=== PATIENT | female | born 1930 | race African-American/Black ===

== ENCOUNTER → 2017-02-18 | Outpatient (CLI) | payer MEDICARE, OTHER ==
[2014-08-07 21:52] VITALS: BP 141/65
[~2017-02-18] MED LIST: BRIM5DRO2 OP; LATA2.5D3 EACHEYE; LOSA25TA4 PO; METO25TA4 PO
--- NOTE | 2017-02-18 12:23 | RAD ---
DATE: 02/18/2017 EXAM: DIGITAL SCREEN BILAT W/CAD HISTORY: Routine screening COMPARISON: 02/18/2016 and 01/25/2015. This study was interpreted with the benefit of Computerized Aided Detection (CAD). FINDINGS: The parenchymal pattern is stable. There are benign-appearing nodular densities in the left breast which appear to be fairly stable. Benign calcification on the left are also seen. Post biopsy changes right breast appears stable. No new mass or malignant appearing microcalcifications are identified. The axillae are unremarkable. Breast Density: SCATTERED The breast parenchyma shows scattered fibroglandular densities. Breast parenchyma level B. IMPRESSION: Stable bilateral mammograms. No mammographic features suspicious for malignancy are identified. BI-RADS CATEGORY: 2 BENIGN FINDING(S) RECOMMENDED FOLLOW-UP: 12M 12 MONTH FOLLOW-UP PQRS compliance statement: Patient information was entered into a reminder system with a target due date 02/18/2018 for the next mammogram. Mammography is a sensitive method for finding small breast cancers, but it does not detect them all and is not a substitute for careful clinical examination. A negative mammogram does not negate a clinically suspicious finding and should not result in delay in biopsying a clinically suspicious abnormality. "Our facility is accredited by the [employer]ammography [employer]."
== END | disposition home or self-care (01) ==
LOC: MAMMO 08:09
PROVIDERS: ATTEND Family Medicine
DX: Z12.31 Encounter for screening mammogram for malignant neoplasm of breast (principal)
CPT/HCPCS: G0202; 77067

== ENCOUNTER 2017-09-04 17:25 | Inpatient (IN) | payer MEDICARE, OTHER ==
[~2017-09-04] VITALS: Ht 165.1 cm; Wt 75.0 kg
[2017-09-04 18:01] LABS: BASO % 0 % (0-3); EOS % 1 % (0-3); HEMATOCRIT 38.9 % (36.0-47.0); HEMOGLOBIN 12.8 g/dL (12.0-15.5); LYMPH # 1.6 x10^3/uL (1.0-4.8); LYMPH % 15 % (24-48); MEAN CORPUSCULAR HEMOGLOBIN 26 pg (25-35); MEAN CORPUSCULAR HGB CONC 33 g/dL (31-37); MEAN CORPUSCULAR VOLUME 79 fL (79-100); MONO % 14 % (0-9); NEUT % 70 % (31-73); PLATELET COUNT 287 x10^3/uL (140-400); RED BLOOD COUNT 4.94 x10^6/uL (3.50-5.40); RED CELL DISTRIBUTION WIDTH 14.4 % (11.5-14.5); WHITE BLOOD COUNT 11.1 x10^3/uL (4.0-11.0)
[2017-09-04 18:13] LABS: CALCIUM 10.1 mg/dL (8.5-10.1); CREATININE 0.9 mg/dL (0.6-1.0); GFR 71.3; POTASSIUM 4.1 mmol/L (3.5-5.1)
[2017-09-04 18:20] LABS: ALBUMIN 3.8 g/dL (3.4-5.0); ALBUMIN/GLOBULIN RATIO 0.8 (1.0-1.7); MAGNESIUM 1.8 mg/dL (1.8-2.4); TOTAL BILIRUBIN 0.4 mg/dL (0.2-1.0); TOTAL PROTEIN 8.7 g/dL (6.4-8.2)
[2017-09-04 18:23] LABS: OBC FLU VALID
[2017-09-04 18:37] LABS: BILIRUBIN,URINE NEGATIVE (NEG); GLUCOSE,URINE NEGATIVE (NEG); NITRITE,URINE NEGATIVE (NEG); PROTEIN,URINE 100 mg/dL (NEG-TRACE); UROBILINOGEN,URINE 0.2 mg/dL (0.2 mg/dL)
[2017-09-04] MEDS ORDERED: ONDANSETRON PF 4 MG/2 ML VIAL. IV PRN ×2 (18:45→19:30)
--- NOTE | 2017-09-04 18:49 | PHYS DOC ---
Past Medical History Past Medical History: Glaucoma, Hypertension, Pneumonia, Renal Disease Past Surgical History: Hysterectomy Additional Past Surgical Histo: benign fibroids in both breasts Alcohol Use: None Drug Use: None Adult General Chief Complaint Chief Complaint: COUGH HPI HPI Patient is a 87 year old female presenting to the emergency department for evaluation of cough congestion losing her voice dizziness weakness. Symptoms of cough started approximately 3 days ago and she says that she has been feeling progressively weaker to the point where she cannot take care of herself at home anymore. She says that she lives by herself and she is concerned for her safety she is getting weak and dizzy and cannot get around as she usually does. Cough is productive of a yellowish mucus and she says that she feels somewhat short of breath with it. She feels chills but no measured fevers. She is nontoxic-appearing in no obvious distress with normal vital signs. Review of Systems Review of Systems Constitutional: Denies fever. + chills [] Eyes: Denies change in visual acuity, redness, or eye pain [] HENT: + nasal congestion, sore throat [] Respiratory: + cough, shortness of breath [] Cardiovascular: No additional information not addressed in HPI [] GI: Denies abdominal pain, nausea, vomiting, bloody stools or diarrhea [] : Denies dysuria or hematuria [] Musculoskeletal: Denies back pain or joint pain [] Integument: Denies rash or skin lesions [] Neurologic: Denies headache, focal weakness or sensory changes [] All other systems were reviewed and found to be within normal limits, except as documented in this note. Current Medications Current Medications Current Medications Medications (Trade) Dose Ordered Sig/Chris Start Time Stop Time Status Last Admin Dose Admin Azithromycin (Zithromax) 500 mg 1X ONCE 09/04/17 19:00 09/04/17 19:01 Ceftriaxone Sodium 1 gm/ Dextrose 50 ml @ 100 mls/hr Q24H 09/04/17 18:45 UNV Ceftriaxone Sodium (Rocephin) 1 gm Q24H 09/05/17 18:00 Ondansetron HCl (Zofran) 4 mg PRN Q8HRS PRN 09/04/17 18:45 09/05/17 18:44 Allergies Allergies Allergies Coded Allergies Type Severity Reaction Last Updated Verified codeine Allergy Intermediate UPSET STOMACHE 08/07/14 No Physical Exam Physical Exam Constitutional: Well developed, well nourished, no acute distress, non-toxic appearance. [] HENT: Normocephalic, atraumatic, bilateral external ears normal, oropharynx moist, no oral exudates, nose normal. [] Eyes: PERRLA, EOMI, conjunctiva normal, no discharge. [] Neck: Normal range of motion, no tenderness, supple, no stridor. [] Cardiovascular:Heart rate regular rhythm, no murmur [] Lungs & Thorax: Bilateral breath sounds with expiratory wheezing noted Abdomen: Bowel sounds normal, soft, no tenderness, no masses, no pulsatile masses. [] Skin: Warm, dry, no erythema, no rash. [] Back: No tenderness, no CVA tenderness. [] Extremities: No tenderness, no cyanosis, no clubbing, ROM intact, no edema. [] Neurologic: Alert and oriented X 3, normal motor function, normal sensory function, no focal deficits noted. [] Current Patient Data Vital Signs Vital Signs Date Time Temp Pulse Resp B/P (MAP) Pulse Ox O2 Delivery O2 Flow Rate FiO2 09/04/17 17:48 99.2 93 20 204/72 (116) 96 Room Air 99.2 Lab Values Laboratory Tests Test 09/04/17 17:45 09/04/17 18:00 White Blood Count 11.1 x10^3/uL (4.0-11.0) H Red Blood Count 4.94 x10^6/uL (3.50-5.40) Hemoglobin 12.8 g/dL (12.0-15.5) Hematocrit 38.9 % (36.0-47.0) Mean Corpuscular Volume 79 fL (79-100) Mean Corpuscular Hemoglobin 26 pg (25-35) Mean Corpuscular Hemoglobin Concent 33 g/dL (31-37) Red Cell Distribution Width 14.4 % (11.5-14.5) Platelet Count 287 x10^3/uL (140-400) Neutrophils (%) (Auto) 70 % (31-73) Lymphocytes (%) (Auto) 15 % (24-48) L Monocytes (%) (Auto) 14 % (0-9) H Eosinophils (%) (Auto) 1 % (0-3) Basophils (%) (Auto) 0 % (0-3) Neutrophils # (Auto) 7.8 x10^3uL (1.8-7.7) H Lymphocytes # (Auto) 1.6 x10^3/uL (1.0-4.8) Monocytes # (Auto) 1.5 x10^3/uL (0.0-1.1) H Eosinophils # (Auto) 0.1 x10^3/uL (0.0-0.7) Basophils # (Auto) 0.0 x10^3/uL (0.0-0.2) Sodium Level 134 mmol/L (136-145) L Potassium Level 4.1 mmol/L (3.5-5.1) Chloride Level 99 mmol/L (98-107) Carbon Dioxide Level 27 mmol/L (21-32) Anion Gap 8 (6-14) Blood Urea Nitrogen 13 mg/dL (7-20) Creatinine 0.9 mg/dL (0.6-1.0) Estimated GFR (Cockcroft-Gault) 71.3 BUN/Creatinine Ratio 14 (6-20) Glucose Level 142 mg/dL (70-99) H Lactic Acid Level 1.5 mmol/L (0.4-2.0) Calcium Level 10.1 mg/dL (8.5-10.1) Magnesium Level 1.8 mg/dL (1.8-2.4) Total Bilirubin 0.4 mg/dL (0.2-1.0) Aspartate Amino Transferase (AST) 13 U/L (15-37) L Alanine Aminotransferase (ALT) 22 U/L (14-59) Alkaline Phosphatase 89 U/L (46-116) Troponin I Quantitative < 0.017 ng/mL (0.000-0.055) HU-Kdh-T-Type Natriuretic Peptide 951 pg/mL (0-449) H Total Protein 8.7 g/dL (6.4-8.2) H Albumin 3.8 g/dL (3.4-5.0) Albumin/Globulin Ratio 0.8 (1.0-1.7) L Influenza Type A Antigen Negative (NEGATIVE) Influenza Type B Antigen Negative (NEGATIVE) Laboratory Tests 09/04/17 17:45 Laboratory Tests 09/04/17 17:45 EKG EKG Sinus rhythm at 89 beats per minutes with normal axis no obvious ST elevation or depression and normal T waves Radiology/Procedures Radiology/Procedures Normal mediastinum and normal heart size no obvious free air pneumothorax but patient does have a left lower lobe infiltrate Course & Med Decision Making Course & Med Decision Making Patient with signs and symptoms concerning for pneumonia and given she is living by herself at home and not functioning well she will be admitted for Rocephin Zithromax and further evaluation and treatment. Patient admitted in stable condition. Dragon Disclaimer Dragon Disclaimer This electronic medical record was generated, in whole or in part, using a voice recognition dictation system. Departure Departure Impression: Primary Impression: CAP (community acquired pneumonia) Additional Impressions: Leukocytosis Elevated brain natriuretic peptide (BNP) level Disposition: ADMITTED INPATIENT Admitting Physician: Porsha Moscoso Condition: STABLE Referrals: FREDY CORREIA (PCP) Problem Qualifiers Primary Impression: CAP (community acquired pneumonia) Laterality: left Lung location: lower lobe of lung Qualified Codes: J18.1 - Lobar pneumonia, unspecified organism AB BOWENS DO Sep 04, 2017 18:49
[2017-09-04 18:50] LABS: BACTERIA,URINE 0 /HPF (0-FEW); SQUAMOUS EPITHELIAL CELL,UR MOD /LPF
[2017-09-04] MEDS ORDERED: AZITHROMYCIN 250 MG TABLET. PO ONE (19:00)
[2017-09-04] MEDS ORDERED: guaiFENesin DM 200MG/20MG 10 ML SYRUP PO PRN (19:30)
[2017-09-04] MEDS ORDERED: LABETALOL 20 MG/4 ML DISP.SYRIN. IVP PRN (19:30)
[2017-09-04] MEDS ORDERED: ACETAMINOPHEN 325 MG TABLET. PO PRN (19:30)
[2017-09-04] MEDS: METOPROLOL TART IMMED RELEASE 25 MG TABLET. PO SCH (20:09)
[2017-09-04] MEDS: LATANOPROST 0.005% OPHTH SOLUTION 2.5ML BOTTLE. OU SCH (20:09)
[2017-09-04] MEDS ORDERED: CLON0.1T PO (20:14)
--- NOTE | 2017-09-04 20:14 | PDOC1 ---
History and Physical Date of Admission Date of Admission DATE: 09/04/17 TIME: 20:09 Identification/Chief Complaint Chief Complaint cough, soa, Problems: Source Source: Caregiver, Chart review, Patient History of Present Illness History of Present Illness Pleasant 87 y,o AA female who lives at home but has good IADLs, tried to call his PCP office today holiday weekend and did not get an answer so decided to come to ER and her friend dropped her off, Few days hx dry cough, SOA, maybe mild temp at home, no recent sick contacts or travel, HAd PNA 1 yr ago,NOn smoker. No diarrhea, no emesis, Labs CBC WBC 11, CXR infiltrate, admitted and being treated for CAP, She was dizzy and too weak to go home and was adamant to be admitted, She is coughing quite frequently during my visit tonight and now has a low grade temp now. Past Medical History Cardiovascular: HTN, Hyperlipidemia Past Surgical History Past Surgical History: No pertinent history Family History Family History: Hypertension Social History Smoke: No ALCOHOL: none Drugs: None Current Problem List Problem List Problems Medical Problems: (1) CAP (community acquired pneumonia) Status: Acute (2) Elevated brain natriuretic peptide (BNP) level Status: Acute (3) Leukocytosis Status: Acute Problems: Current Medications Current Medications Current Medications Ceftriaxone Sodium 1 gm/ Dextrose 50 ml @ 100 mls/hr Q24H IV ; Start 09/04/17 at 18:45; Status UNV Azithromycin (Zithromax) 500 mg 1X ONCE PO Last administered on 09/04/17 19: 27; Start 09/04/17 at 19:00; Stop 09/04/17 at 19:01; Status DC Ondansetron HCl (Zofran) 4 mg PRN Q8HRS PRN IV NAUSEA/VOMITING; Start at 18:45; Stop 09/04/17 at 19:29; Status DC Ceftriaxone Sodium 50 ml @ 100 mls/hr 1X ONCE IV Last administered on 19:27; Start 09/04/17 at 19:00; Stop 09/04/17 at 19:29; Status DC Ceftriaxone Sodium (Rocephin) 1 gm Q24H IVP ; Start 09/05/17 at 18:00 Ondansetron HCl (Zofran) 4 mg PRN Q6HRS PRN IV NAUSEA/VOMITING; Start at 19:30 Acetaminophen (Tylenol) 650 mg PRN Q6HRS PRN PO pain; Start 09/04/17 at 19:30 Guaifenesin (Robitussin Dm) 10 ml PRN Q6HRS PRN PO COUGH; Start 09/04/17 at 19 :30 Albuterol/ Ipratropium (Duoneb) 3 ml RTQID NEB ; Start 09/04/17 at 20:00 Labetalol HCl (Normodyne) 10 mg PRN Q2HR PRN IVP HYPERTENSION, SEE COMMENTS; Start 09/04/17 at 19:30 Azithromycin (Zithromax) 250 mg DAILY PO ; Start 09/05/17 at 09:00 Latanoprost (Xalatan) 1 drop QHS OU ; Start 09/04/17 at 21:00 Losartan Potassium (Cozaar) 25 mg DAILY PO ; Start 09/05/17 at 09:00 Metoprolol Tartrate (Lopressor) 25 mg BID PO ; Start 09/04/17 at 21:00 Timolol Maleate (Timoptic 0.25% Ophth) 1 drop DAILY OU ; Start 09/05/17 at 09: 00 Active Scripts Active Reported Latanoprost 2.5 Ml Drops 1 Drop EACHEYE QHS Metoprolol Tartrate 25 Mg Tablet 1 Tab PO BID Losartan Potassium 25 Mg Tablet 25 Mg PO DAILY Combigan Eye Drops (Brimonidine Tartrate/Timolol) 5 Ml Drops 5 Ml OP Allergies Allergies: Coded Allergies: codeine (Unverified Allergy, Intermediate, UPSET STOMACHE, 08/07/14) ROS Review of System as per HPI, all else 14 pt reviewed, neg Physical Exam General: Alert, Oriented X3 HEENT: Atraumatic, PERRLA Lungs: Normal air movement, Other (wheezing) Cardiovascular: S1, S2 Breasts: Normal, Rt breast nml w/o mass, Lt breast nml w/o mass, Nipples normal Abdomen: Normal bowel sounds, Soft, No tenderness, No hepatosplenomegaly, No masses Rectal Exam: not examined PELVIC: Nml ext genitalia Extremities: No clubbing, No cyanosis, No edema, Normal pulses, No tenderness/ swelling Skin: No rashes, No breakdown, No significant lesion Neuro: Normal gait, Normal speech, Strength at 5/5 X4 ext, Normal tone, Sensation intact, Cranial nerves 3-12 NL, Reflexes 2+ Psych/Mental Status: Mental status NL, Mood NL Vitals Vitals Vital Signs Date Time Temp Pulse Resp B/P (MAP) Pulse Ox O2 Delivery O2 Flow Rate FiO2 09/04/17 17:48 99.2 93 20 204/72 (116) 96 Room Air 99.2 Labs Labs Laboratory Tests Test 09/04/17 17:45 09/04/17 18:00 09/04/17 18:15 White Blood Count 11.1 x10^3/uL (4.0-11.0) Red Blood Count 4.94 x10^6/uL (3.50-5.40) Hemoglobin 12.8 g/dL (12.0-15.5) Hematocrit 38.9 % (36.0-47.0) Mean Corpuscular Volume 79 fL (79-100) Mean Corpuscular Hemoglobin 26 pg (25-35) Mean Corpuscular Hemoglobin Concent 33 g/dL (31-37) Red Cell Distribution Width 14.4 % (11.5-14.5) Platelet Count 287 x10^3/uL (140-400) Neutrophils (%) (Auto) 70 % (31-73) Lymphocytes (%) (Auto) 15 % (24-48) Monocytes (%) (Auto) 14 % (0-9) Eosinophils (%) (Auto) 1 % (0-3) Basophils (%) (Auto) 0 % (0-3) Neutrophils # (Auto) 7.8 x10^3uL (1.8-7.7) Lymphocytes # (Auto) 1.6 x10^3/uL (1.0-4.8) Monocytes # (Auto) 1.5 x10^3/uL (0.0-1.1) Eosinophils # (Auto) 0.1 x10^3/uL (0.0-0.7) Basophils # (Auto) 0.0 x10^3/uL (0.0-0.2) Sodium Level 134 mmol/L (136-145) Potassium Level 4.1 mmol/L (3.5-5.1) Chloride Level 99 mmol/L (98-107) Carbon Dioxide Level 27 mmol/L (21-32) Anion Gap 8 (6-14) Blood Urea Nitrogen 13 mg/dL (7-20) Creatinine 0.9 mg/dL (0.6-1.0) Estimated GFR (Cockcroft-Gault) 71.3 BUN/Creatinine Ratio 14 (6-20) Glucose Level 142 mg/dL (70-99) Lactic Acid Level 1.5 mmol/L (0.4-2.0) Calcium Level 10.1 mg/dL (8.5-10.1) Magnesium Level 1.8 mg/dL (1.8-2.4) Total Bilirubin 0.4 mg/dL (0.2-1.0) Aspartate Amino Transf (AST/SGOT) 13 U/L (15-37) Alanine Aminotransferase (ALT/SGPT) 22 U/L (14-59) Alkaline Phosphatase 89 U/L (46-116) Troponin I Quantitative < 0.017 ng/mL (0.000-0.055) MO-Ivw-X-Type Natriuretic Peptide 951 pg/mL (0-449) Total Protein 8.7 g/dL (6.4-8.2) Albumin 3.8 g/dL (3.4-5.0) Albumin/Globulin Ratio 0.8 (1.0-1.7) Influenza Type A Antigen Negative (NEGATIVE) Influenza Type B Antigen Negative (NEGATIVE) Urine Collection Type Unknown Urine Color Yellow Urine Clarity Clear Urine pH 7.0 Urine Specific [place] 1.010 Urine Protein 100 mg/dL (NEG-TRACE) Urine Glucose (UA) Negative mg/dL (NEG) Urine Ketones (Stick) Negative mg/dL (NEG) Urine Blood Negative (NEG) Urine Nitrite Negative (NEG) Urine Bilirubin Negative (NEG) Urine Urobilinogen Dipstick 0.2 mg/dL (0.2 mg/dL) Urine Leukocyte Esterase Trace (NEG) Urine RBC 1-2 /HPF (0-2) Urine WBC 1-4 /HPF (0-4) Urine Squamous Epithelial Cells Mod /LPF Urine Bacteria 0 /HPF (0-FEW) Laboratory Tests Test 09/04/17 17:45 09/04/17 18:00 09/04/17 18:15 White Blood Count 11.1 x10^3/uL (4.0-11.0) Red Blood Count 4.94 x10^6/uL (3.50-5.40) Hemoglobin 12.8 g/dL (12.0-15.5) Hematocrit 38.9 % (36.0-47.0) Mean Corpuscular Volume 79 fL (79-100) Mean Corpuscular Hemoglobin 26 pg (25-35) Mean Corpuscular Hemoglobin Concent 33 g/dL (31-37) Red Cell Distribution Width 14.4 % (11.5-14.5) Platelet Count 287 x10^3/uL (140-400) Neutrophils (%) (Auto) 70 % (31-73) Lymphocytes (%) (Auto) 15 % (24-48) Monocytes (%) (Auto) 14 % (0-9) Eosinophils (%) (Auto) 1 % (0-3) Basophils (%) (Auto) 0 % (0-3) Neutrophils # (Auto) 7.8 x10^3uL (1.8-7.7) Lymphocytes # (Auto) 1.6 x10^3/uL (1.0-4.8) Monocytes # (Auto) 1.5 x10^3/uL (0.0-1.1) Eosinophils # (Auto) 0.1 x10^3/uL (0.0-0.7) Basophils # (Auto) 0.0 x10^3/uL (0.0-0.2) Sodium Level 134 mmol/L (136-145) Potassium Level 4.1 mmol/L (3.5-5.1) Chloride Level 99 mmol/L (98-107) Carbon Dioxide Level 27 mmol/L (21-32) Anion Gap 8 (6-14) Blood Urea Nitrogen 13 mg/dL (7-20) Creatinine 0.9 mg/dL (0.6-1.0) Estimated GFR (Cockcroft-Gault) 71.3 BUN/Creatinine Ratio 14 (6-20) Glucose Level 142 mg/dL (70-99) Lactic Acid Level 1.5 mmol/L (0.4-2.0) Calcium Level 10.1 mg/dL (8.5-10.1) Magnesium Level 1.8 mg/dL (1.8-2.4) Total Bilirubin 0.4 mg/dL (0.2-1.0) Aspartate Amino Transf (AST/SGOT) 13 U/L (15-37) Alanine Aminotransferase (ALT/SGPT) 22 U/L (14-59) Alkaline Phosphatase 89 U/L (46-116) Troponin I Quantitative < 0.017 ng/mL (0.000-0.055) VY-Tek-X-Type Natriuretic Peptide 951 pg/mL (0-449) Total Protein 8.7 g/dL (6.4-8.2) Albumin 3.8 g/dL (3.4-5.0) Albumin/Globulin Ratio 0.8 (1.0-1.7) Influenza Type A Antigen Negative (NEGATIVE) Influenza Type B Antigen Negative (NEGATIVE) Urine Collection Type Unknown Urine Color Yellow Urine Clarity Clear Urine pH 7.0 Urine Specific [place] 1.010 Urine Protein 100 mg/dL (NEG-TRACE) Urine Glucose (UA) Negative mg/dL (NEG) Urine Ketones (Stick) Negative mg/dL (NEG) Urine Blood Negative (NEG) Urine Nitrite Negative (NEG) Urine Bilirubin Negative (NEG) Urine Urobilinogen Dipstick 0.2 mg/dL (0.2 mg/dL) Urine Leukocyte Esterase Trace (NEG) Urine RBC 1-2 /HPF (0-2) Urine WBC 1-4 /HPF (0-4) Urine Squamous Epithelial Cells Mod /LPF Urine Bacteria 0 /HPF (0-FEW) VTE Prophylaxis Ordered VTE Prophylaxis Devices: Yes VTE Pharmacological Prophylaxi: Yes Assessment/Plan Assessment/Plan 1. CAP 2. SIRS no sepsis, infectious, nonorgan dysfcn 3. HTN, controlled 4. MIld PCM PLan; Admit 2 MN IVF x 1 L PO pred since wheezy Would cont CAP coverage started at ER Cough meds Bhavya PT.OT Further recs pending above Resume home meds Seen in room with aide and rn at bedside RICHARD OLIVEIRA MD Sep 04, 2017 20:14
[2017-09-04 20:25] VITALS: BP 197/62
[2017-09-04] MEDS ORDERED: predniSONE 10 MG TABLET PO ONE (20:30)
[2017-09-04] MEDS: guaiFENesin DM 200MG/20MG 10 ML SYRUP PO SCH (20:41)
[2017-09-04] MEDS ORDERED: TRIA1CAP3 PO (20:47)
[2017-09-04] MEDS: IPRATRPIUM/ALBUTEROL 0.5/2.5MG 3 ML NEBU. NEB SCH (20:57)
[2017-09-04] MEDS ORDERED: IV NORMAL SALINE 1000ML BAG 1,000 ML IV ONE (21:00)
[2017-09-04] MEDS: BENZONATATE 100 MG CAPSULE. PO SCH (21:11)
[2017-09-04 22:04] VITALS: BP 158/59
[2017-09-04 23:10] VITALS: BP 146/68
[2017-09-05 03:00] VITALS: BP 151/56
[2017-09-05] MEDS ORDERED: BRIM5DRO2 OP (03:54)
[2017-09-05] MEDS ORDERED: ASPI-612 PO (03:54)
[2017-09-05 06:02] LABS: BASO % 0 % (0-3); EOS % 0 % (0-3); HEMATOCRIT 38.5 % (36.0-47.0); HEMOGLOBIN 12.2 g/dL (12.0-15.5); LYMPH # 1.1 x10^3/uL (1.0-4.8); LYMPH % 11 % (24-48); MEAN CORPUSCULAR HEMOGLOBIN 25 pg (25-35); MEAN CORPUSCULAR HGB CONC 32 g/dL (31-37); MEAN CORPUSCULAR VOLUME 80 fL (79-100); MONO % 4 % (0-9); NEUT % 85 % (31-73); PLATELET COUNT 237 x10^3/uL (140-400); RED BLOOD COUNT 4.84 x10^6/uL (3.50-5.40); RED CELL DISTRIBUTION WIDTH 14.4 % (11.5-14.5); WHITE BLOOD COUNT 9.9 x10^3/uL (4.0-11.0)
[2017-09-05 06:19] LABS: CALCIUM 9.6 mg/dL (8.5-10.1); CREATININE 0.9 mg/dL (0.6-1.0); GFR 71.3; POTASSIUM 3.9 mmol/L (3.5-5.1)
[2017-09-05] MEDS: IPRATRPIUM/ALBUTEROL 0.5/2.5MG 3 ML NEBU. NEB SCH ×4 (07:34→19:42)
--- NOTE | 2017-09-05 07:55 | RAD ---
Two view chest History:COUGH . PA and lateral views of the chest are submitted. Comparison: 01/28/2016 Findings: There is mild opacity near the left heart border, somewhat more apparent than previous exam. There is no dependent pleural fluid or pneumothorax. Heart size is stable. Impression: 1. Mild opacity near the left heart border is more apparent than 2016 exam which may be due to mild atelectasis or infiltrate.
[2017-09-05] MEDS ORDERED: TIMOLOL 0.25% OPHTH SOLUTION 5ML BOTTLE. OU SCH (09:00)
[2017-09-05] MEDS: AZITHROMYCIN 250 MG TABLET. PO SCH (09:25)
[2017-09-05] MEDS: BENZONATATE 100 MG CAPSULE. PO SCH ×3 (09:25→21:19)
[2017-09-05] MEDS: predniSONE 20 MG TABLET PO SCH (09:25)
[2017-09-05] MEDS: LOSARTAN POTASSIUM 25 MG TABLET. PO SCH (09:27)
[2017-09-05] MEDS: guaiFENesin DM 200MG/20MG 10 ML SYRUP PO SCH ×4 (09:27→21:19)
[2017-09-05] MEDS: METOPROLOL TART IMMED RELEASE 25 MG TABLET. PO SCH ×2 (09:27→21:20)
[2017-09-05] MEDS ORDERED: hydrALAZINE 20 MG/ML VIAL. IVP PRN (09:30)
[2017-09-05 11:11] VITALS: BP 130/43
--- NOTE | 2017-09-05 12:51 | EKG ---
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
--- NOTE | 2017-09-05 13:28 | PDOC ---
PROGRESS NOTES Chief Complaint Chief Complaint 1. CAP, mild left 2. SIRS no sepsis, infectious, nonorgan dysfcn 3. HTN, controlled 4. MIld PCM History of Present Illness History of Present Illness feels better Think she wont be ready to dc by tmr Requests her own eye drops also says she is on ASA 81 PLAn: CPM Better Her cxr result I have given her PT.OT Supportive [facility] next 24-48 hrs Vitals Vitals Vital Signs Date Time Temp Pulse Resp B/P (MAP) Pulse Ox O2 Delivery O2 Flow Rate FiO2 09/05/17 11:55 96 Room Air 09/05/17 11:11 98.2 72 20 130/43 (72) 98.2 Physical Exam General: Alert, Oriented X3 Heart: Regular rate Lungs: Other (minmal BS poor effort) Abdomen: Normal bowel sounds, Soft, No tenderness, No hepatosplenomegaly, No masses Extremities: No clubbing, No cyanosis, No edema, Normal pulses, No tenderness/ swelling Skin: No rashes, No breakdown, No significant lesion Labs LABS Laboratory Tests Test 09/04/17 17:45 09/04/17 18:00 09/04/17 18:15 09/05/17 05:25 White Blood Count 11.1 x10^3/uL (4.0-11.0) 9.9 x10^3/uL (4.0-11.0) Red Blood Count 4.94 x10^6/uL (3.50-5.40) 4.84 x10^6/uL (3.50-5.40) Hemoglobin 12.8 g/dL (12.0-15.5) 12.2 g/dL (12.0-15.5) Hematocrit 38.9 % (36.0-47.0) 38.5 % (36.0-47.0) Mean Corpuscular Volume 79 fL (79-100) 80 fL (79-100) Mean Corpuscular Hemoglobin 26 pg (25-35) 25 pg (25-35) Mean Corpuscular Hemoglobin Concent 33 g/dL (31-37) 32 g/dL (31-37) Red Cell Distribution Width 14.4 % (11.5-14.5) 14.4 % (11.5-14.5) Platelet Count 287 x10^3/uL (140-400) 237 x10^3/uL (140-400) Neutrophils (%) (Auto) 70 % (31-73) 85 % (31-73) Lymphocytes (%) (Auto) 15 % (24-48) 11 % (24-48) Monocytes (%) (Auto) 14 % (0-9) 4 % (0-9) Eosinophils (%) (Auto) 1 % (0-3) 0 % (0-3) Basophils (%) (Auto) 0 % (0-3) 0 % (0-3) Neutrophils # (Auto) 7.8 x10^3uL (1.8-7.7) 8.4 x10^3uL (1.8-7.7) Lymphocytes # (Auto) 1.6 x10^3/uL (1.0-4.8) 1.1 x10^3/uL (1.0-4.8) Monocytes # (Auto) 1.5 x10^3/uL (0.0-1.1) 0.4 x10^3/uL (0.0-1.1) Eosinophils # (Auto) 0.1 x10^3/uL (0.0-0.7) 0.0 x10^3/uL (0.0-0.7) Basophils # (Auto) 0.0 x10^3/uL (0.0-0.2) 0.0 x10^3/uL (0.0-0.2) Sodium Level 134 mmol/L (136-145) 139 mmol/L (136-145) Potassium Level 4.1 mmol/L (3.5-5.1) 3.9 mmol/L (3.5-5.1) Chloride Level 99 mmol/L (98-107) 104 mmol/L (98-107) Carbon Dioxide Level 27 mmol/L (21-32) 27 mmol/L (21-32) Anion Gap 8 (6-14) 8 (6-14) Blood Urea Nitrogen 13 mg/dL (7-20) 13 mg/dL (7-20) Creatinine 0.9 mg/dL (0.6-1.0) 0.9 mg/dL (0.6-1.0) Estimated GFR (Cockcroft-Gault) 71.3 71.3 BUN/Creatinine Ratio 14 (6-20) Glucose Level 142 mg/dL (70-99) 254 mg/dL (70-99) Lactic Acid Level 1.5 mmol/L (0.4-2.0) Calcium Level 10.1 mg/dL (8.5-10.1) 9.6 mg/dL (8.5-10.1) Magnesium Level 1.8 mg/dL (1.8-2.4) Total Bilirubin 0.4 mg/dL (0.2-1.0) Aspartate Amino Transf (AST/SGOT) 13 U/L (15-37) Alanine Aminotransferase (ALT/SGPT) 22 U/L (14-59) Alkaline Phosphatase 89 U/L (46-116) Troponin I Quantitative < 0.017 ng/mL (0.000-0.055) JW-Yiz-[id number]-Type Natriuretic Peptide 951 pg/mL (0-449) Total Protein 8.7 g/dL (6.4-8.2) Albumin 3.8 g/dL (3.4-5.0) Albumin/Globulin Ratio 0.8 (1.0-1.7) Influenza Type A Antigen Negative (NEGATIVE) Influenza Type B Antigen Negative (NEGATIVE) Urine Collection Type Unknown Urine Color Yellow Urine Clarity Clear Urine pH 7.0 Urine Specific [place] 1.010 Urine Protein 100 mg/dL (NEG-TRACE) Urine Glucose (UA) Negative mg/dL (NEG) Urine Ketones (Stick) Negative mg/dL (NEG) Urine Blood Negative (NEG) Urine Nitrite Negative (NEG) Urine Bilirubin Negative (NEG) Urine Urobilinogen Dipstick 0.2 mg/dL (0.2 mg/dL) Urine Leukocyte Esterase Trace (NEG) Urine RBC 1-2 /HPF (0-2) Urine WBC 1-4 /HPF (0-4) Urine Squamous Epithelial Cells Mod /LPF Urine Bacteria 0 /HPF (0-FEW) Review of Systems Review of Systems no cp, soa, abd pain, emesis Assessment and Plan Assessmemt and Plan Problems Medical Problems: (1) CAP (community acquired pneumonia) Status: Acute (2) Elevated brain natriuretic peptide (BNP) level Status: Acute (3) Leukocytosis Status: Acute Problems: Comment Review of Relevant I have reviewed the following items norman (where applicable) has been applied. Labs Laboratory Tests Test 09/04/17 17:45 09/04/17 18:00 09/04/17 18:15 09/05/17 05:25 White Blood Count 11.1 x10^3/uL (4.0-11.0) 9.9 x10^3/uL (4.0-11.0) Red Blood Count 4.94 x10^6/uL (3.50-5.40) 4.84 x10^6/uL (3.50-5.40) Hemoglobin 12.8 g/dL (12.0-15.5) 12.2 g/dL (12.0-15.5) Hematocrit 38.9 % (36.0-47.0) 38.5 % (36.0-47.0) Mean Corpuscular Volume 79 fL (79-100) 80 fL (79-100) Mean Corpuscular Hemoglobin 26 pg (25-35) 25 pg (25-35) Mean Corpuscular Hemoglobin Concent 33 g/dL (31-37) 32 g/dL (31-37) Red Cell Distribution Width 14.4 % (11.5-14.5) 14.4 % (11.5-14.5) Platelet Count 287 x10^3/uL (140-400) 237 x10^3/uL (140-400) Neutrophils (%) (Auto) 70 % (31-73) 85 % (31-73) Lymphocytes (%) (Auto) 15 % (24-48) 11 % (24-48) Monocytes (%) (Auto) 14 % (0-9) 4 % (0-9) Eosinophils (%) (Auto) 1 % (0-3) 0 % (0-3) Basophils (%) (Auto) 0 % (0-3) 0 % (0-3) Neutrophils # (Auto) 7.8 x10^3uL (1.8-7.7) 8.4 x10^3uL (1.8-7.7) Lymphocytes # (Auto) 1.6 x10^3/uL (1.0-4.8) 1.1 x10^3/uL (1.0-4.8) Monocytes # (Auto) 1.5 x10^3/uL (0.0-1.1) 0.4 x10^3/uL (0.0-1.1) Eosinophils # (Auto) 0.1 x10^3/uL (0.0-0.7) 0.0 x10^3/uL (0.0-0.7) Basophils # (Auto) 0.0 x10^3/uL (0.0-0.2) 0.0 x10^3/uL (0.0-0.2) Sodium Level 134 mmol/L (136-145) 139 mmol/L (136-145) Potassium Level 4.1 mmol/L (3.5-5.1) 3.9 mmol/L (3.5-5.1) Chloride Level 99 mmol/L (98-107) 104 mmol/L (98-107) Carbon Dioxide Level 27 mmol/L (21-32) 27 mmol/L (21-32) Anion Gap 8 (6-14) 8 (6-14) Blood Urea Nitrogen 13 mg/dL (7-20) 13 mg/dL (7-20) Creatinine 0.9 mg/dL (0.6-1.0) 0.9 mg/dL (0.6-1.0) Estimated GFR (Cockcroft-Gault) 71.3 71.3 BUN/Creatinine Ratio 14 (6-20) Glucose Level 142 mg/dL (70-99) 254 mg/dL (70-99) Lactic Acid Level 1.5 mmol/L (0.4-2.0) Calcium Level 10.1 mg/dL (8.5-10.1) 9.6 mg/dL (8.5-10.1) Magnesium Level 1.8 mg/dL (1.8-2.4) Total Bilirubin 0.4 mg/dL (0.2-1.0) Aspartate Amino Transf (AST/SGOT) 13 U/L (15-37) Alanine Aminotransferase (ALT/SGPT) 22 U/L (14-59) Alkaline Phosphatase 89 U/L (46-116) Troponin I Quantitative < 0.017 ng/mL (0.000-0.055) RK-Thq-I-Type Natriuretic Peptide 951 pg/mL (0-449) Total Protein 8.7 g/dL (6.4-8.2) Albumin 3.8 g/dL (3.4-5.0) Albumin/Globulin Ratio 0.8 (1.0-1.7) Influenza Type A Antigen Negative (NEGATIVE) Influenza Type B Antigen Negative (NEGATIVE) Urine Collection Type Unknown Urine Color Yellow Urine Clarity Clear Urine pH 7.0 Urine Specific [place] 1.010 Urine Protein 100 mg/dL (NEG-TRACE) Urine Glucose (UA) Negative mg/dL (NEG) Urine Ketones (Stick) Negative mg/dL (NEG) Urine Blood Negative (NEG) Urine Nitrite Negative (NEG) Urine Bilirubin Negative (NEG) Urine Urobilinogen Dipstick 0.2 mg/dL (0.2 mg/dL) Urine Leukocyte Esterase Trace (NEG) Urine RBC 1-2 /HPF (0-2) Urine WBC 1-4 /HPF (0-4) Urine Squamous Epithelial Cells Mod /LPF Urine Bacteria 0 /HPF (0-FEW) Laboratory Tests Test 09/04/17 17:45 09/04/17 18:00 09/04/17 18:15 09/05/17 05:25 White Blood Count 11.1 x10^3/uL (4.0-11.0) 9.9 x10^3/uL (4.0-11.0) Red Blood Count 4.94 x10^6/uL (3.50-5.40) 4.84 x10^6/uL (3.50-5.40) Hemoglobin 12.8 g/dL (12.0-15.5) 12.2 g/dL (12.0-15.5) Hematocrit 38.9 % (36.0-47.0) 38.5 % (36.0-47.0) Mean Corpuscular Volume 79 fL (79-100) 80 fL (79-100) Mean Corpuscular Hemoglobin 26 pg (25-35) 25 pg (25-35) Mean Corpuscular Hemoglobin Concent 33 g/dL (31-37) 32 g/dL (31-37) Red Cell Distribution Width 14.4 % (11.5-14.5) 14.4 % (11.5-14.5) Platelet Count 287 x10^3/uL (140-400) 237 x10^3/uL (140-400) Neutrophils (%) (Auto) 70 % (31-73) 85 % (31-73) Lymphocytes (%) (Auto) 15 % (24-48) 11 % (24-48) Monocytes (%) (Auto) 14 % (0-9) 4 % (0-9) Eosinophils (%) (Auto) 1 % (0-3) 0 % (0-3) Basophils (%) (Auto) 0 % (0-3) 0 % (0-3) Neutrophils # (Auto) 7.8 x10^3uL (1.8-7.7) 8.4 x10^3uL (1.8-7.7) Lymphocytes # (Auto) 1.6 x10^3/uL (1.0-4.8) 1.1 x10^3/uL (1.0-4.8) Monocytes # (Auto) 1.5 x10^3/uL (0.0-1.1) 0.4 x10^3/uL (0.0-1.1) Eosinophils # (Auto) 0.1 x10^3/uL (0.0-0.7) 0.0 x10^3/uL (0.0-0.7) Basophils # (Auto) 0.0 x10^3/uL (0.0-0.2) 0.0 x10^3/uL (0.0-0.2) Sodium Level 134 mmol/L (136-145) 139 mmol/L (136-145) Potassium Level 4.1 mmol/L (3.5-5.1) 3.9 mmol/L (3.5-5.1) Chloride Level 99 mmol/L (98-107) 104 mmol/L (98-107) Carbon Dioxide Level 27 mmol/L (21-32) 27 mmol/L (21-32) Anion Gap 8 (6-14) 8 (6-14) Blood Urea Nitrogen 13 mg/dL (7-20) 13 mg/dL (7-20) Creatinine 0.9 mg/dL (0.6-1.0) 0.9 mg/dL (0.6-1.0) Estimated GFR (Cockcroft-Gault) 71.3 71.3 BUN/Creatinine Ratio 14 (6-20) Glucose Level 142 mg/dL (70-99) 254 mg/dL (70-99) Lactic Acid Level 1.5 mmol/L (0.4-2.0) Calcium Level 10.1 mg/dL (8.5-10.1) 9.6 mg/dL (8.5-10.1) Magnesium Level 1.8 mg/dL (1.8-2.4) Total Bilirubin 0.4 mg/dL (0.2-1.0) Aspartate Amino Transf (AST/SGOT) 13 U/L (15-37) Alanine Aminotransferase (ALT/SGPT) 22 U/L (14-59) Alkaline Phosphatase 89 U/L (46-116) Troponin I Quantitative < 0.017 ng/mL (0.000-0.055) RX-Rjy-W-Type Natriuretic Peptide 951 pg/mL (0-449) Total Protein 8.7 g/dL (6.4-8.2) Albumin 3.8 g/dL (3.4-5.0) Albumin/Globulin Ratio 0.8 (1.0-1.7) Influenza Type A Antigen Negative (NEGATIVE) Influenza Type B Antigen Negative (NEGATIVE) Urine Collection Type Unknown Urine Color Yellow Urine Clarity Clear Urine pH 7.0 Urine Specific [place] 1.010 Urine Protein 100 mg/dL (NEG-TRACE) Urine Glucose (UA) Negative mg/dL (NEG) Urine Ketones (Stick) Negative mg/dL (NEG) Urine Blood Negative (NEG) Urine Nitrite Negative (NEG) Urine Bilirubin Negative (NEG) Urine Urobilinogen Dipstick 0.2 mg/dL (0.2 mg/dL) Urine Leukocyte Esterase Trace (NEG) Urine RBC 1-2 /HPF (0-2) Urine WBC 1-4 /HPF (0-4) Urine Squamous Epithelial Cells Mod /LPF Urine Bacteria 0 /HPF (0-FEW) Medications Current Medications Ceftriaxone Sodium 1 gm/ Dextrose 50 ml @ 100 mls/hr Q24H IV ; Start 09/04/17 at 18:45; Status UNV Azithromycin (Zithromax) 500 mg 1X ONCE PO Last administered on 09/04/17t 19: 27; Start 09/04/17 at 19:00; Stop 09/04/17 at 19:01; Status DC Ondansetron HCl (Zofran) 4 mg PRN Q8HRS PRN IV NAUSEA/VOMITING; Start at 18:45; Stop 09/04/17 at 19:29; Status DC Ceftriaxone Sodium 50 ml @ 100 mls/hr 1X ONCE IV Last administered on 19:27; Start 09/04/17 at 19:00; Stop 09/04/17 at 19:29; Status DC Ceftriaxone Sodium (Rocephin) 1 gm Q24H IVP ; Start 09/05/17 at 18:00 Ondansetron HCl (Zofran) 4 mg PRN Q6HRS PRN IV NAUSEA/VOMITING; Start at 19:30 Acetaminophen (Tylenol) 650 mg PRN Q6HRS PRN PO pain Last administered on 09/04 20:03; Start 09/04/17 at 19:30 Guaifenesin (Robitussin Dm) 10 ml PRN Q6HRS PRN PO COUGH Last administered on 09/04/17 20:03; Start 09/04/17 at 19:30; Stop 09/04/17 at 20:16; Status DC Albuterol/ Ipratropium (Duoneb) 3 ml RTQID NEB Last administered on 09/05/17 11:53; Start 09/04/17 at 20:00 Labetalol HCl (Normodyne) 10 mg PRN Q2HR PRN IVP HYPERTENSION, SEE COMMENTS; Start 09/04/17 at 19:30 Azithromycin (Zithromax) 250 mg DAILY PO Last administered on 09/05/17 09:25 ; Start 09/05/17 at 09:00 Latanoprost (Xalatan) 1 drop QHS OU Last administered on 09/04/17 20:09; Start 09/04/17 at 21:00 Losartan Potassium (Cozaar) 25 mg DAILY PO Last administered on 09/05/17 09: 27; Start 09/05/17 at 09:00 Metoprolol Tartrate (Lopressor) 25 mg BID PO Last administered on 09/05/17 09 :27; Start 09/04/17 at 21:00 Timolol Maleate (Timoptic 0.25% Oph) 1 drop DAILY OU ; Start 09/05/17 at 09: 00 Benzonatate (Tessalon Perle) 100 mg ASS211 PO Last administered on 09/05/17 09:25; Start 09/04/17 at 21:00 Guaifenesin (Robitussin Dm) 10 ml QID PO Last administered on 09/05/17 09:27 ; Start 09/04/17 at 21:00 Sodium Chloride 1,000 ml @ 75 mls/hr 1X ONCE IV Last administered on 20:39; Start 09/04/17 at 21:00; Stop 09/05/17 at 10:19; Status DC Prednisone (Prednisone) 50 mg 1X ONCE PO Last administered on 09/04/17 20:37 ; Start 09/04/17 at 20:30; Stop 09/04/17 at 20:31; Status DC Prednisone (Prednisone) 40 mg DAILY PO Last administered on 09/05/17 09:25; Start 09/05/17 at 09:00 Hydralazine HCl (Apresoline Inj) 10 mg PRN Q4HRS PRN IVP ELEVATED BP, SEE COMMENTS; Start 09/05/17 at 09:30 Active Scripts Active Reported Combigan Eye Drops (Brimonidine Tartrate/Timolol) 5 Ml Drops 2 Drp OP BID one drop to each eye Aspirin Ec (Aspirin) 81 Mg Tablet.dr 1 Tab PO DAILY Triamterene-Hctz 37.5-25 Mg Cp (Triamterene/Hydrochlorothiazid) 1 Each Capsule 1 Cap PO DAILY Clonidine Hcl 0.1 Mg Tablet 1 Tab PO QHS Latanoprost 2.5 Ml Drops 1 Drop EACHEYE QHS Metoprolol Tartrate 25 Mg Tablet 1 Tab PO BID Losartan Potassium 25 Mg Tablet 25 Mg PO DAILY Combigan Eye Drops (Brimonidine Tartrate/Timolol) 5 Ml Drops 5 Ml OP Vitals/I & O Vital Sign - Last 24 Hours 09/04/17 09/04/17 09/04/17 09/04/17 17:48 18:14 18:44 19:14 Temp 99.2 99.2 Pulse 93 84 86 86 Resp 20 B/P (MAP) 204/72 (116) 179/109 (132) 184/86 (118) 191/78 (115) Pulse Ox 96 96 97 96 O2 Delivery Room Air Room Air Room Air Room Air 09/04/17 09/04/17 09/04/17 09/04/17 20:00 20:00 20:09 20:25 Temp 100.8 100.8 Pulse 94 94 Resp 18 B/P (MAP) 197/62 197/62 (107) Pulse Ox 92 O2 Delivery Room Air Room Air Room Air 09/04/17 09/04/17 09/04/17 09/04/17 20:58 22:04 23:03 23:10 Temp 98.6 97.9 98.6 97.9 Pulse 74 77 Resp 20 20 B/P (MAP) 158/59 (92) 146/68 (94) Pulse Ox 98 95 O2 Delivery Room Air Room Air Room Air 09/05/17 09/05/17 09/05/17 09/05/17 03:00 07:35 08:30 09:27 Temp 98.1 98.1 Pulse 68 68 Resp 20 B/P (MAP) 151/56 (87) 151/56 Pulse Ox 98 97 O2 Delivery Room Air Room Air Room Air 09/05/17 09/05/17 09/05/17 09:27 11:11 11:55 Temp 98.2 98.2 Pulse 68 72 Resp 20 B/P (MAP) 151/56 130/43 (72) Pulse Ox 96 96 O2 Delivery Room Air Room Air Intake and Output 09/04/17 09/04/17 09/05/17 15:00 23:00 07:00 Intake Total 120 ml Balance 120 ml RICHARD OLIVEIRA MD Sep 05, 2017 13:28
[2017-09-05] MEDS ORDERED: ASPIRIN CHEWABLE 81 MG TABLET. PO SCH (14:00)
[2017-09-05 15:00] VITALS: BP 155/57
[2017-09-05] MEDS ORDERED: cefTRIAXone IV Push 1 GM VIAL. IVP SCH (18:00)
[2017-09-05 19:00] VITALS: BP 173/71
[2017-09-05] MEDS: LATANOPROST 0.005% OPHTH SOLUTION 2.5ML BOTTLE. OU SCH (21:19)
[2017-09-05] MEDS ORDERED: cloNIDine HCL 0.1 MG TABLET PO SCH (22:00)
[2017-09-05] MEDS ORDERED: ASPIRIN ENTERIC COATED 81 MG TABLET.DR. PO SCH (22:00)
[2017-09-05] MEDS: TIMOLOL OP SCH (22:13)
[2017-09-05] MEDS: BRIMONIDINE OP SCH (22:13)
[2017-09-05 23:00] VITALS: BP 130/64
[2017-09-06 03:31] VITALS: BP 148/44
[2017-09-06 07:00] VITALS: BP 155/61
[2017-09-06] MEDS: IPRATRPIUM/ALBUTEROL 0.5/2.5MG 3 ML NEBU. NEB SCH ×2 (07:59→11:28)
[2017-09-06] MEDS: guaiFENesin DM 200MG/20MG 10 ML SYRUP PO SCH (08:27)
[2017-09-06] MEDS: LOSARTAN POTASSIUM 25 MG TABLET. PO SCH (08:27)
[2017-09-06] MEDS: predniSONE 20 MG TABLET PO SCH (08:27)
[2017-09-06] MEDS: METOPROLOL TART IMMED RELEASE 25 MG TABLET. PO SCH (08:28)
[2017-09-06] MEDS: AZITHROMYCIN 250 MG TABLET. PO SCH (08:28)
[2017-09-06] MEDS ORDERED: PSYL3.4P PO (08:36)
[2017-09-06] MEDS: TIMOLOL OP SCH (08:37)
[2017-09-06] MEDS: BRIMONIDINE OP SCH (08:37)
[2017-09-06] MEDS ORDERED: TRIAMTERENE/HCTZ 37.5/25MG TABLET. PO SCH (09:00)
[2017-09-06] MEDS ORDERED: ASPIRIN ENTERIC COATED 81 MG TABLET.DR. PO SCH (09:00)
[2017-09-06 10:30] VITALS: BP 150/52
[2017-09-06] MEDS: BENZONATATE 100 MG CAPSULE. PO SCH (10:48)
[2017-09-06] MEDS ORDERED: BENZ100C PO (11:05)
[2017-09-06] MEDS ORDERED: AMOX1TAB58 PO (11:05)
[2017-09-06] MEDS ORDERED: PROAIR HFA8.5 GM INH (11:05)
--- NOTE | 2017-09-06 11:14 | PDOC3 ---
Discharge Summary Visit Information Date of Admission: Sep 04, 2017 Date of Discharge: Sep 06, 2017 Admitting Diagnosis Comment: 1. CAP, mild left 2. SIRS no sepsis, infectious, nonorgan dysfcn 3. HTN, controlled 4. MIld PCM Final Diagnosis Problems Medical Problems: (1) CAP (community acquired pneumonia) Status: Acute (2) Elevated brain natriuretic peptide (BNP) level Status: Acute (3) Leukocytosis Status: Acute Brief Hospital Course Allergies Allergies Coded Allergies Type Severity Reaction Last Updated Verified codeine Allergy Intermediate UPSET STOMACHE 08/07/14 No amoxicillin Adverse Reaction Mild GI UPSET 09/04/17 Yes Vital Signs Vital Signs Date Time Temp Pulse Resp B/P (MAP) Pulse Ox O2 Delivery O2 Flow Rate FiO2 09/06/17 10:30 97.7 58 20 150/52 (84) 94 Room Air 97.7 Lab Results Laboratory Tests Test 09/04/17 17:45 09/04/17 18:00 09/04/17 18:15 09/05/17 05:25 White Blood Count 11.1 x10^3/uL (4.0-11.0) 9.9 x10^3/uL (4.0-11.0) Red Blood Count 4.94 x10^6/uL (3.50-5.40) 4.84 x10^6/uL (3.50-5.40) Hemoglobin 12.8 g/dL (12.0-15.5) 12.2 g/dL (12.0-15.5) Hematocrit 38.9 % (36.0-47.0) 38.5 % (36.0-47.0) Mean Corpuscular Volume 79 fL (79-100) 80 fL (79-100) Mean Corpuscular Hemoglobin 26 pg (25-35) 25 pg (25-35) Mean Corpuscular Hemoglobin Concent 33 g/dL (31-37) 32 g/dL (31-37) Red Cell Distribution Width 14.4 % (11.5-14.5) 14.4 % (11.5-14.5) Platelet Count 287 x10^3/uL (140-400) 237 x10^3/uL (140-400) Neutrophils (%) (Auto) 70 % (31-73) 85 % (31-73) Lymphocytes (%) (Auto) 15 % (24-48) 11 % (24-48) Monocytes (%) (Auto) 14 % (0-9) 4 % (0-9) Eosinophils (%) (Auto) 1 % (0-3) 0 % (0-3) Basophils (%) (Auto) 0 % (0-3) 0 % (0-3) Neutrophils # (Auto) 7.8 x10^3uL (1.8-7.7) 8.4 x10^3uL (1.8-7.7) Lymphocytes # (Auto) 1.6 x10^3/uL (1.0-4.8) 1.1 x10^3/uL (1.0-4.8) Monocytes # (Auto) 1.5 x10^3/uL (0.0-1.1) 0.4 x10^3/uL (0.0-1.1) Eosinophils # (Auto) 0.1 x10^3/uL (0.0-0.7) 0.0 x10^3/uL (0.0-0.7) Basophils # (Auto) 0.0 x10^3/uL (0.0-0.2) 0.0 x10^3/uL (0.0-0.2) Sodium Level 134 mmol/L (136-145) 139 mmol/L (136-145) Potassium Level 4.1 mmol/L (3.5-5.1) 3.9 mmol/L (3.5-5.1) Chloride Level 99 mmol/L (98-107) 104 mmol/L (98-107) Carbon Dioxide Level 27 mmol/L (21-32) 27 mmol/L (21-32) Anion Gap 8 (6-14) 8 (6-14) Blood Urea Nitrogen 13 mg/dL (7-20) 13 mg/dL (7-20) Creatinine 0.9 mg/dL (0.6-1.0) 0.9 mg/dL (0.6-1.0) Estimated GFR (Cockcroft-Gault) 71.3 71.3 BUN/Creatinine Ratio 14 (6-20) Glucose Level 142 mg/dL (70-99) 254 mg/dL (70-99) Lactic Acid Level 1.5 mmol/L (0.4-2.0) Calcium Level 10.1 mg/dL (8.5-10.1) 9.6 mg/dL (8.5-10.1) Magnesium Level 1.8 mg/dL (1.8-2.4) Total Bilirubin 0.4 mg/dL (0.2-1.0) Aspartate Amino Transf (AST/SGOT) 13 U/L (15-37) Alanine Aminotransferase (ALT/SGPT) 22 U/L (14-59) Alkaline Phosphatase 89 U/L (46-116) Troponin I Quantitative < 0.017 ng/mL (0.000-0.055) NS-Vvu-X-Type Natriuretic Peptide 951 pg/mL (0-449) Total Protein 8.7 g/dL (6.4-8.2) Albumin 3.8 g/dL (3.4-5.0) Albumin/Globulin Ratio 0.8 (1.0-1.7) Influenza Type A Antigen Negative (NEGATIVE) Influenza Type B Antigen Negative (NEGATIVE) Urine Collection Type Unknown Urine Color Yellow Urine Clarity Clear Urine pH 7.0 Urine Specific [place] 1.010 Urine Protein 100 mg/dL (NEG-TRACE) Urine Glucose (UA) Negative mg/dL (NEG) Urine Ketones (Stick) Negative mg/dL (NEG) Urine Blood Negative (NEG) Urine Nitrite Negative (NEG) Urine Bilirubin Negative (NEG) Urine Urobilinogen Dipstick 0.2 mg/dL (0.2 mg/dL) Urine Leukocyte Esterase Trace (NEG) Urine RBC 1-2 /HPF (0-2) Urine WBC 1-4 /HPF (0-4) Urine Squamous Epithelial Cells Mod /LPF Urine Bacteria 0 /HPF (0-FEW) Brief Hospital Course Ms. Cassidy is a 87 old AA female, non smoker, was adamant to be admitted for her SOA sxs. Was found to have mild pNA on left, treated with CAP coverage, IV rocephin and PO azithro., WBC 11 on admit and has normalized, NO fevers,non toxic, just hoarse voice. I provided her a copy of her cxr and labs, RX done and faxed to [facility], ALso given her tessalon perles and pro air, seen and examined time 32 mins, she wanted to stay, i told her she could cont to recuperate at home no PT needs. Discharge Information Condition at Discharge: Improved, Stable Disposition/Orders: D/C to Home Scheduled Aspirin (Aspirin Ec), 1 TAB PO DAILY, (Reported) Brimonidine Tartrate/Timolol (Combigan Eye Drops), 2 DRP OP BID, (Reported) Clonidine Hcl (Clonidine Hcl), 1 TAB PO QHS, (Reported) Latanoprost (Latanoprost), 1 DROP EACHEYE QHS, (Reported) Losartan Potassium (Losartan Potassium), 25 MG PO DAILY, (Reported) Metoprolol Tartrate (Metoprolol Tartrate), 1 TAB PO BID, (Reported) Triamterene/Hydrochlorothiazid (Triamterene-Hctz 37.5-25 Mg Cp), 1 CAP PO DAILY, (Reported) Scheduled PRN Albuterol Sulfate (Proair Hfa Inhaler), 1 PUFF INH PRN Q6HRS PRN for SHORTNESS OF BREATH Psyllium Husk/Aspartame (Metamucil Fiber Singles Packet), 3.4 GM PO for CONSTIPATION, (Reported) Miscellaneous Medications Brimonidine Tartrate/Timolol (Combigan Eye Drops), 5 ML OP, (Reported) RICHARD OLIVEIRA MD Sep 06, 2017 11:14
== END 2017-09-06 13:00 | disposition home or self-care (01) | DRG 871 ==
LOC: ER 17:25 → 5 NORTH 18:24
PROVIDERS: ADMIT Internal Medicine; ATTEND Internal Medicine
DX: A41.9 Sepsis, unspecified organism (principal); J18.9 Pneumonia, unspecified organism; E44.1 Mild protein-calorie malnutrition; E78.5 Hyperlipidemia, unspecified; I10 Essential (primary) hypertension; D72.829 Elevated white blood cell count, unspecified; K59.00 Constipation, unspecified; Z79.82 Long term (current) use of aspirin; Z79.899 Other long term (current) drug therapy; Z82.49 Family history of ischemic heart disease and other diseases of the circulatory system; Z68.27 Body mass index [BMI] 27.0-27.9, adult; Z88.8 Allergy status to other drugs, medicaments and biological substances; Z87.01 Personal history of pneumonia (recurrent); Z90.710 Acquired absence of both cervix and uterus
CPT/HCPCS: 36415; 71020; 80048; 80053; 81001; 83605; 83735; 83880; 84484; 85025; 87040; 87086; 87804; 93005; 94250; 94640; 96374; J0690; J0696; J7030; J7512; J7620; Q0144; 99285-25

== ENCOUNTER → 2018-02-21 | Outpatient (CLI) | payer MEDICARE, OTHER | END | disposition home or self-care (01) | LOC: MAMMO 12:44 | DX: Z12.31 Encounter for screening mammogram for malignant neoplasm of breast (principal) | CPT/HCPCS: 77067 ==